=== PATIENT | male | born 1965 | race Caucasian/White ===

== ENCOUNTER 2018-02-17 14:59 | Inpatient (IN) | payer MEDICARE, MEDICAID ==
[~2018-02-17] VITALS: Ht 172.7 cm; Wt 70.4 kg
[2018-02-17] MEDS ORDERED: HIV PO (15:58)
[2018-02-17 16:13] LABS: BASOPHILS % (AUTO) 0.6 % (0.0-2.0); EOSINOPHILS % (AUTO) 2.5 % (1.0-6.0); HEMATOCRIT 34.1 % (41-53); HEMOGLOBIN 12.1 g/dL (13.5-17.5); LYMPHOCYTES # (AUTO) 0.9 K/uL (1.0-4.8); MEAN CORPUSCULAR HEMOGLOBIN 33.1 pg (26.0-34.0); MEAN CORPUSCULAR HGB CONC 35.4 G/dL (31.0-37.0); MEAN CORPUSCULAR VOLUME 94 fL (80-100); MONOCYTES # (AUTO) 0.5 K/uL (0.1-1.0); MONOCYTES % (AUTO) 17.9 % (2.0-9.0); NEUTROPHILS # (AUTO) 1.2 K/uL (1.8-7.7); PLATELET COUNT (AUTO) 180 K/uL (150-450); RED BLOOD CELL COUNT(AUTO) 3.65 MIL/uL (4.50-5.90); RED CELL DISTRIBUTION WIDTH 13.8 % (11.5-14.5)
[2018-02-17 16:27] LABS: ANION GAP 7 mmol/L (8-16); CALCIUM, TOTAL 8.1 mg/dL (8.8-10.5); CARBON DIOXIDE 28 mmol/L (22-29); CHLORIDE 105 mmol/L (98-107); GLOMERULAR FILTR. RATE CALC > 60 mL/min (>60); GLUCOSE,RANDOM 92 mg/dL (70-110); POTASSIUM 3.3 mmol/L (3.5-5.1); SODIUM SERUM 140 mmol/L (136-145); UREA NITROGEN, BLOOD 10 mg/dL (7-18)
[2018-02-17 16:30] LABS: APPEARANCE,URINE CLEAR (CLEAR); BILIRUBIN,URINE NEGATIVE (NEGATIVE); GLUCOSE, URINE (UA) NEGATIVE (NEGATIVE); KETONES,URINE 40 mg/dL (NEGATIVE); LEUKOCYTE ESTERASE ,URINE NEGATIVE (NEGATIVE); NITRATE,URINE NEGATIVE (NEGATIVE); OCCULT BLOOD,URINE TRACE (NEGATIVE); PROTEIN,URINE TRACE (NEGATIVE)
[2018-02-17 16:33] LABS: ALANINE AMINOTRANSFERASE 40 U/L (12-78); ALBUMIN 3.3 g/dL (3.4-5.0); ALKALINE PHOSPHATASE 129 U/L (46-116); ASPARTATE AMINOTRANSFERASE 41 U/L (15-37); BILIRUBIN,TOTAL 0.8 mg/dL (0.1-1.0); TOTAL PROTEIN, SERUM 7.2 g/dL (6.4-8.2)
[2018-02-17 16:40] LABS: BACTERIA,URINE Rare /HPF (None Seen); SQUAMOUS EPITHELIAL CELL,UR Rare /LPF (None Seen); WBC,URINE 0-2 /HPF (0-5)
[2018-02-17 16:41] LABS: MUCUS,URINE Moderate LPF (None Seen)
[2018-02-17 19:48] LABS: CREATINE KINASE, TOTAL ONLY 102 U/L (39-308)
[2018-02-17] MEDS ORDERED: POTASSIUM CHLORIDE 20 MEQ ER TABLET PO ONE (20:00)
[2018-02-17] MEDS ORDERED: LORazepam 2 MG TABLET PO PRN ×2 (20:00→20:30)
[2018-02-17 20:04] LABS: AMPHET/METH SCREEN,URINE NEGATIVE (NEGATIVE); BARBITURATE SCREEN, URINE NEGATIVE (NEGATIVE); BENZODIAZEPINES SCREEN,URINE NEGATIVE (NEGATIVE); CANNABINOID SCREEN,URINE POSITIVE (NEGATIVE); COCAINE SCREEN,URINE NEGATIVE (NEGATIVE); METHADONE SCREEN, URINE NEGATIVE (NEGATIVE); OPIATE SCREEN,URINE NEGATIVE (NEGATIVE)
[2018-02-17 20:05] LABS: PHENCYCLIDINE SCREEN,URINE NEGATIVE (NEGATIVE)
[2018-02-17] MEDS ORDERED: HALOPERIDOL 5 MG TABLET PO PRN (20:30)
[2018-02-17] MEDS ORDERED: ZOLPIDEM TARTRATE 10 MG TABLET PO PRN (20:30)
[2018-02-18] MEDS ORDERED: LORazepam 2 MG TABLET PO PRN (07:00)
[2018-02-18] MEDS: LORazepam 2 MG TABLET PO SCH ×4 (08:39→21:00)
[2018-02-18 09:07] LABS: CHOL/HDL RATIO 3.5 (4.2-7.3)
[2018-02-18 10:50] VITALS: BP 127/90
[2018-02-18 12:00] VITALS: BP 129/79
[2018-02-18] MEDS ORDERED: PETROLATUM,WHITE 71 GM JELLY TP PRN (12:15)
[2018-02-18] MEDS ORDERED: ONDANSETRON HCL 4 MG TABLET PO PRN (12:15)
[2018-02-18] MEDS ORDERED: GuaiFENesin/D-METHORPHAN [SUGAR-FREE] 200-20MG/10 ML SYRUP UDCUP PO PRN (12:15)
[2018-02-18] MEDS ORDERED: ALBUTEROL SULFATE HFA 90 MCG/PUFF 8 GM INHALER IH PRN (12:15)
[2018-02-18] MEDS ORDERED: MAG HYDROX/AL HYDROX/SIMETH ES 30 ML SUSPENSION UDCUP PO PRN (12:15)
[2018-02-18] MEDS ORDERED: MAGNESIUM HYDROXIDE SUSPENSION 30 ML UDCUP PO PRN (12:15)
[2018-02-18] MEDS ORDERED: DOCUSATE SODIUM 100 MG CAPSULE PO PRN (12:15)
[2018-02-18] MEDS ORDERED: NICOTINE 14 MG/24 HOUR PATCH TD PRN (12:15)
[2018-02-18] MEDS ORDERED: LOPERAMIDE HCL 2 MG CAPSULE PO PRN (12:15)
[2018-02-18] MEDS ORDERED: ACETAMINOPHEN 325 MG TABLET PO PRN (12:15)
[2018-02-18] MEDS ORDERED: CloNIDine HCL 0.1 MG TABLET PO PRN (12:15)
[2018-02-18 13:00] VITALS: BP 110/76
[2018-02-18] MEDS ORDERED: CYANOCOBALAMIN 1,000 MCG/ML VIAL IM ONE (13:30)
[2018-02-18] MEDS: ESCITALOPRAM OXALATE 10 MG TABLET PO SCH (13:59)
[2018-02-18] MEDS: MULTIVITAMINS WITH MINERALS, THERAPEUTIC TABLET PO SCH (13:59)
[2018-02-18 14:00] VITALS: BP 112/80
[2018-02-18] MEDS: FOLIC ACID 1 MG TABLET PO SCH (14:00)
[2018-02-18 15:00] VITALS: BP 118/81
[2018-02-18 16:10] VITALS: BP 122/74
[2018-02-18] MEDS: BACITRACIN 28.4 GM OINTMENT TP SCH (17:00)
[2018-02-18] MEDS: THIAMINE HCL 100 MG TABLET PO SCH (18:14)
[2018-02-19 00:10] VITALS: BP 126/77
[2018-02-19 08:26] VITALS: BP 132/93
[2018-02-19] MEDS: LORazepam 2 MG TABLET PO SCH ×4 (08:39→21:14)
[2018-02-19] MEDS: ESCITALOPRAM OXALATE 10 MG TABLET PO SCH (08:39)
[2018-02-19] MEDS: FOLIC ACID 1 MG TABLET PO SCH (08:39)
[2018-02-19] MEDS: MULTIVITAMINS WITH MINERALS, THERAPEUTIC TABLET PO SCH (08:40)
[2018-02-19] MEDS: BACITRACIN 28.4 GM OINTMENT TP SCH ×2 (08:40→17:07)
[2018-02-19] MEDS: THIAMINE HCL 100 MG TABLET PO SCH ×2 (08:40→17:07)
[2018-02-19 08:59] LABS: CHOL/HDL RATIO 3.7 (4.2-7.3); POTASSIUM 3.9 mmol/L (3.5-5.1); THYROID STIMULATING HORMONE 0.66 uIU/mL (0.36-3.74)
[2018-02-19 09:36] LABS: HEMOGLOBIN A1C 5.3 % (4.5-6.2)
[2018-02-19 16:00] VITALS: BP 111/74
[2018-02-19 16:01] VITALS: BP 111/74
[2018-02-20 00:47] VITALS: BP 119/71
[2018-02-20] MEDS ORDERED: PNEUMOCOCCAL VACCINE POLYVALENT 0.5 ML VIAL [PPSV23] IM ONE (01:15)
[2018-02-20] MEDS ORDERED: LORazepam 1 MG TABLET PO PRN (07:00)
[2018-02-20 08:15] VITALS: BP 119/81
[2018-02-20 08:16] VITALS: BP 120/82
[2018-02-20 08:17] VITALS: BP 119/81
[2018-02-20] MEDS: ESCITALOPRAM OXALATE 10 MG TABLET PO SCH (08:46)
[2018-02-20] MEDS: MULTIVITAMINS WITH MINERALS, THERAPEUTIC TABLET PO SCH (08:47)
[2018-02-20] MEDS: BACITRACIN 28.4 GM OINTMENT TP SCH ×2 (08:47→16:09)
[2018-02-20] MEDS: LORazepam 1 MG TABLET PO SCH ×4 (08:47→20:17)
[2018-02-20] MEDS: THIAMINE HCL 100 MG TABLET PO SCH ×2 (08:47→16:08)
[2018-02-20] MEDS: FOLIC ACID 1 MG TABLET PO SCH (08:47)
[2018-02-20 16:00] VITALS: BP 110/60
[2018-02-20 16:38] VITALS: BP 110/60
[2018-02-20] MEDS: IBUPROFEN 400 MG TABLET PO PRN (18:01)
[2018-02-21 00:41] VITALS: BP 103/65
[2018-02-21 00:44] VITALS: BP 103/65
[2018-02-21] MEDS ORDERED: LORazepam 1 MG TABLET PO PRN (07:00)
[2018-02-21 08:20] VITALS: BP 127/72
[2018-02-21] MEDS: BACITRACIN 28.4 GM OINTMENT TP SCH ×2 (08:31→16:00)
[2018-02-21] MEDS: ESCITALOPRAM OXALATE 10 MG TABLET PO SCH (08:32)
[2018-02-21] MEDS: FOLIC ACID 1 MG TABLET PO SCH (08:32)
[2018-02-21] MEDS: THIAMINE HCL 100 MG TABLET PO SCH ×2 (08:32→16:00)
[2018-02-21] MEDS: MULTIVITAMINS WITH MINERALS, THERAPEUTIC TABLET PO SCH (08:32)
[2018-02-21] MEDS: BuPROPion HCL XL 150 MG ER TABLET PO SCH (12:58)
[2018-02-21 16:00] VITALS: BP 117/79
[2018-02-21 16:08] VITALS: BP 117/79
[2018-02-21 19:25] VITALS: BP 114/73
[2018-02-22 05:02] VITALS: BP 113/66
[2018-02-22 08:30] VITALS: BP 104/63
[2018-02-22 08:55] VITALS: BP 104/62
[2018-02-22] MEDS: BuPROPion HCL XL 150 MG ER TABLET PO SCH (08:58)
[2018-02-22] MEDS: THIAMINE HCL 100 MG TABLET PO SCH ×2 (08:58→16:07)
[2018-02-22] MEDS: FOLIC ACID 1 MG TABLET PO SCH (08:58)
[2018-02-22] MEDS: BACITRACIN 28.4 GM OINTMENT TP SCH ×2 (08:58→19:54)
[2018-02-22] MEDS: IBUPROFEN 400 MG TABLET PO PRN (12:58)
[2018-02-22 13:00] VITALS: BP 121/75
[2018-02-22] MEDS: MULTIVITAMINS WITH MINERALS, THERAPEUTIC TABLET PO SCH (13:00)
[2018-02-22 16:00] VITALS: BP 108/64
[2018-02-22 16:07] VITALS: BP 108/64
[2018-02-23 00:17] VITALS: BP 106/60
[2018-02-23] MEDS: MULTIVITAMINS WITH MINERALS, THERAPEUTIC TABLET PO SCH (08:23)
[2018-02-23] MEDS: THIAMINE HCL 100 MG TABLET PO SCH (08:23)
[2018-02-23] MEDS: FOLIC ACID 1 MG TABLET PO SCH (08:23)
[2018-02-23] MEDS: BACITRACIN 28.4 GM OINTMENT TP SCH (08:23)
[2018-02-23 08:36] VITALS: BP 117/71
[2018-02-23] MEDS ORDERED: BuPROPion HCL XL 150 MG ER TABLET PO SCH (09:00)
[2018-02-23 09:49] VITALS: BP 117/71
[2018-02-23] MEDS ORDERED: BUPR-93 PO (10:41)
[2018-02-24] MEDS ORDERED: BuPROPion HCL XL 150 MG ER TABLET PO SCH (09:00)
== END 2018-02-23 13:35 | disposition home or self-care (01) | DRG 885 ==
LOC: EMS 15:00 → B2S 02-18 09:41
PROVIDERS: ADMIT Psychiatry & Neurology Psychiatry; ATTEND Psychiatry & Neurology Psychiatry
DX: F33.2 Major depressive disorder, recurrent severe without psychotic features (principal); R45.851 Suicidal ideations; D64.9 Anemia, unspecified; D72.819 Decreased white blood cell count, unspecified; E87.6 Hypokalemia; F10.20 Alcohol dependence, uncomplicated; F12.90 Cannabis use, unspecified, uncomplicated; F17.200 Nicotine dependence, unspecified, uncomplicated; Z71.6 Tobacco abuse counseling
CPT/HCPCS: 83036; 84132; 84443; 90686; 93005; 96372; G0480; J3420

== ENCOUNTER 2018-04-12 14:13 | Emergency (ER) | payer MEDICARE, MEDICAID ==
[~2018-04-12] VITALS: Ht 167.6 cm; Wt 81.8 kg
[~2018-04-12 14:13] MED LIST: BUPR-93 PO
[2018-04-12] MEDS ORDERED: MAGNESIUM SULFATE 2 GM, MVI, ADULT NO.1 WITH VIT K 10 ML, THIAMINE HCL 100 MG, FOLIC AC... IV ONE ×5 (16:45)
[2018-04-12] MEDS ORDERED: SODIUM CHLORIDE 0.9% 1,000 ML IV ONE (16:45)
[2018-04-12 16:57] LABS: BASOPHILS % (AUTO) 1.8 % (0.0-2.0); EOSINOPHILS % (AUTO) 1.5 % (1.0-6.0); HEMATOCRIT 34.5 % (41-53); LYMPHOCYTES # (AUTO) 1.4 K/uL (1.0-4.8); LYMPHOCYTES % (AUTO) 41.2 % (22.0-44.0); MEAN CORPUSCULAR HEMOGLOBIN 31.2 pg (26.0-34.0); MEAN CORPUSCULAR HGB CONC 34.7 G/dL (31.0-37.0); MEAN CORPUSCULAR VOLUME 90 fL (80-100); MONOCYTES # (AUTO) 0.4 K/uL (0.1-1.0); MONOCYTES % (AUTO) 11.5 % (2.0-9.0); NEUTROPHILS # (AUTO) 1.5 K/uL (1.8-7.7); PLATELET COUNT (AUTO) 176 K/uL (150-450); RED BLOOD CELL COUNT(AUTO) 3.84 MIL/uL (4.50-5.90); RED CELL DISTRIBUTION WIDTH 15.2 % (11.5-14.5)
[2018-04-12 16:58] VITALS: BP 112/66
[2018-04-12 17:06] LABS: AMPHET/METH SCREEN,URINE NEGATIVE (NEGATIVE); BARBITURATE SCREEN, URINE NEGATIVE (NEGATIVE); BENZODIAZEPINES SCREEN,URINE NEGATIVE (NEGATIVE); CANNABINOID SCREEN,URINE POSITIVE (NEGATIVE); COCAINE SCREEN,URINE NEGATIVE (NEGATIVE); METHADONE SCREEN, URINE NEGATIVE (NEGATIVE); OPIATE SCREEN,URINE NEGATIVE (NEGATIVE)
[2018-04-12 17:07] LABS: PHENCYCLIDINE SCREEN,URINE NEGATIVE (NEGATIVE)
[2018-04-12 17:10] LABS: ANION GAP 7 mmol/L (8-16); CALCIUM, TOTAL 8.6 mg/dL (8.8-10.5); CARBON DIOXIDE 26 mmol/L (22-29); CHLORIDE 100 mmol/L (98-107); CREATININE 0.73 mg/dL (0.60-1.30); GLOMERULAR FILTR. RATE CALC > 60 mL/min (>60); GLUCOSE,RANDOM 102 mg/dL (70-110); POTASSIUM 3.9 mmol/L (3.5-5.1); SODIUM SERUM 133 mmol/L (136-145); UREA NITROGEN, BLOOD 9 mg/dL (7-18)
[2018-04-12 17:23] LABS: SALICYLATE < 2.8 mg/dL (2.8-20.0)
[2018-04-12 17:25] LABS: ALANINE AMINOTRANSFERASE 21 U/L (12-78); ALBUMIN 3.3 g/dL (3.4-5.0); ALKALINE PHOSPHATASE 111 U/L (46-116); ASPARTATE AMINOTRANSFERASE 29 U/L (15-37); BILIRUBIN,TOTAL 1.1 mg/dL (0.1-1.0); TOTAL PROTEIN, SERUM 7.8 g/dL (6.4-8.2)
[2018-04-12] MEDS ORDERED: ChlordiazePOXIDE HCL 25 MG CAPSULE PO ONE (17:30)
[2018-04-12 17:40] LABS: ACETAMINOPHEN < 2 mcg/mL (10-30)
== END 2018-04-12 19:03 | disposition home or self-care (01) ==
LOC: EMS 14:14
DX: F10.239 Alcohol dependence with withdrawal, unspecified (principal); F12.90 Cannabis use, unspecified, uncomplicated; F17.210 Nicotine dependence, cigarettes, uncomplicated; Z88.1 Allergy status to other antibiotic agents; Z88.8 Allergy status to other drugs, medicaments and biological substances; Y90.0 Blood alcohol level of less than 20 mg/100 ml; Z79.899 Other long term (current) drug therapy
CPT/HCPCS: 36415; 80053; 80307; 85025; 96365; 99283; G0480 ×2; G0481; J3411; J3475; J3490 ×2; J7030

== ENCOUNTER 2018-07-13 10:30 | Inpatient (IN) | payer MEDICARE, MEDICAID ==
[~2018-07-13] VITALS: Ht 167.6 cm; Wt 68.7 kg
[2018-07-13 11:48] LABS: EOSINOPHILS % (AUTO) 2.8 % (1.0-6.0); HEMOGLOBIN 12.5 g/dL (13.5-17.5); LYMPHOCYTES # (AUTO) 0.8 K/uL (1.0-4.8); LYMPHOCYTES % (AUTO) 36.9 % (22.0-44.0); MEAN CORPUSCULAR HGB CONC 34.6 G/dL (31.0-37.0); MEAN CORPUSCULAR VOLUME 93 fL (80-100); MONOCYTES # (AUTO) 0.3 K/uL (0.1-1.0); MONOCYTES % (AUTO) 12.2 % (2.0-9.0); NEUTROPHILS # (AUTO) 1.1 K/uL (1.8-7.7); NEUTROPHILS % (AUTO) 47.1 % (40.0-70.0); PLATELET COUNT (AUTO) 169 K/uL (150-450); RED BLOOD CELL COUNT(AUTO) 3.89 MIL/uL (4.50-5.90)
[2018-07-13 12:04] LABS: ANION GAP 10 mmol/L (8-16); CALCIUM, TOTAL 8.3 mg/dL (8.8-10.5); CARBON DIOXIDE 24 mmol/L (22-29); CHLORIDE 103 mmol/L (98-107); CREATININE 0.79 mg/dL (0.60-1.30); GLOMERULAR FILTR. RATE CALC > 60 mL/min (>60); GLUCOSE,RANDOM 87 mg/dL (70-110); POTASSIUM 3.7 mmol/L (3.5-5.1); SODIUM SERUM 137 mmol/L (136-145); UREA NITROGEN, BLOOD 9 mg/dL (7-18)
[2018-07-13 12:07] LABS: ALANINE AMINOTRANSFERASE 39 U/L (12-78); ALBUMIN 3.5 g/dL (3.4-5.0); ALKALINE PHOSPHATASE 129 U/L (46-116); ASPARTATE AMINOTRANSFERASE 43 U/L (15-37); BILIRUBIN,TOTAL 0.5 mg/dL (0.1-1.0); LIPASE 151 U/L (73-393)
[2018-07-13 12:11] LABS: B-TYPE NATRIURETIC PEPTIDE 5 pg/mL (0-100)
[2018-07-13 12:14] LABS: AMPHET/METH SCREEN,URINE NEGATIVE (NEGATIVE); BARBITURATE SCREEN, URINE NEGATIVE (NEGATIVE); BENZODIAZEPINES SCREEN,URINE NEGATIVE (NEGATIVE); CANNABINOID SCREEN,URINE POSITIVE (NEGATIVE); COCAINE SCREEN,URINE NEGATIVE (NEGATIVE); METHADONE SCREEN, URINE NEGATIVE (NEGATIVE); OPIATE SCREEN,URINE NEGATIVE (NEGATIVE)
[2018-07-13 12:18] LABS: PHENCYCLIDINE SCREEN,URINE NEGATIVE (NEGATIVE)
[2018-07-13 13:09] LABS: APPEARANCE,URINE CLEAR (CLEAR); BILIRUBIN,URINE NEGATIVE (NEGATIVE); GLUCOSE, URINE (UA) NEGATIVE (NEGATIVE); KETONES,URINE NEGATIVE (NEGATIVE); LEUKOCYTE ESTERASE ,URINE NEGATIVE (NEGATIVE); NITRATE,URINE NEGATIVE (NEGATIVE); OCCULT BLOOD,URINE TRACE (NEGATIVE); PH,URINE 5.5 (5.0-8.0); PROTEIN,URINE NEGATIVE (NEGATIVE); UROBILINOGEN,URINE 0.2 mg/dL (<=1.0)
[2018-07-13] MEDS ORDERED: LORazepam 2 MG/ML VIAL IM ONE (13:15)
[2018-07-13] MEDS ORDERED: HALOPERIDOL LACTATE 5 MG/ML VIAL IM ONE (13:15)
[2018-07-13 13:44] LABS: BACTERIA,URINE None Seen /HPF (None Seen); RBC,URINE 0-2 /HPF (0-2); WBC,URINE None Seen /HPF (0-5)
[2018-07-13] MEDS ORDERED: ACETAMINOPHEN 325 MG TABLET PO PRN ×2 (14:30→18:45)
[2018-07-13] MEDS ORDERED: IBUPROFEN 400 MG TABLET PO PRN ×2 (14:30→18:45)
[2018-07-13 17:00] VITALS: BP 98/56
[2018-07-13] MEDS ORDERED: PETROLATUM,WHITE 28 GM JELLY TP PRN (18:45)
[2018-07-13] MEDS ORDERED: ONDANSETRON HCL 4 MG TABLET PO PRN (18:45)
[2018-07-13] MEDS ORDERED: MAGNESIUM HYDROXIDE SUSPENSION 30 ML UDCUP PO PRN (18:45)
[2018-07-13] MEDS ORDERED: ALBUTEROL SULFATE HFA 90 MCG/PUFF 8 GM INHALER IH PRN (18:45)
[2018-07-13] MEDS ORDERED: LOPERAMIDE HCL 2 MG CAPSULE PO PRN (18:45)
[2018-07-13] MEDS ORDERED: DOCUSATE SODIUM 100 MG CAPSULE PO PRN (18:45)
[2018-07-13] MEDS ORDERED: CloNIDine HCL 0.1 MG TABLET PO PRN (18:45)
[2018-07-13] MEDS ORDERED: GuaiFENesin/D-METHORPHAN [SUGAR-FREE] 200-20MG/10 ML SYRUP UDCUP PO PRN (18:45)
[2018-07-13] MEDS ORDERED: MAG HYDROX/AL HYDROX/SIMETH ES 30 ML SUSPENSION UDCUP PO PRN (18:45)
[2018-07-13] MEDS ORDERED: NICOTINE 14 MG/24 HOUR PATCH TD PRN (18:45)
[2018-07-14] MEDS ORDERED: PNEUMOCOCCAL VACCINE POLYVALENT 0.5 ML VIAL [PPSV23] IM ONE (01:30)
[2018-07-14 05:57] LABS: BASOPHILS % (AUTO) 0.6 % (0.0-2.0); EOSINOPHILS % (AUTO) 7.3 % (1.0-6.0); HEMOGLOBIN 12.6 g/dL (13.5-17.5); LYMPHOCYTES # (AUTO) 0.9 K/uL (1.0-4.8); LYMPHOCYTES % (AUTO) 36.9 % (22.0-44.0); MEAN CORPUSCULAR HEMOGLOBIN 32.3 pg (26.0-34.0); MEAN CORPUSCULAR VOLUME 92 fL (80-100); MONOCYTES # (AUTO) 0.4 K/uL (0.1-1.0); MONOCYTES % (AUTO) 15.5 % (2.0-9.0); NEUTROPHILS # (AUTO) 0.9 K/uL (1.8-7.7); NEUTROPHILS % (AUTO) 39.7 % (40.0-70.0); PLATELET COUNT (AUTO) 150 K/uL (150-450); RED CELL DISTRIBUTION WIDTH 16.4 % (11.5-14.5)
[2018-07-14 06:20] LABS: HEMOGLOBIN A1C 5.4 % (4.5-6.2)
[2018-07-14 06:24] LABS: ALANINE AMINOTRANSFERASE 45 U/L (12-78); ALBUMIN 3.1 g/dL (3.4-5.0); ALKALINE PHOSPHATASE 120 U/L (46-116); ANION GAP 10 mmol/L (8-16); ASPARTATE AMINOTRANSFERASE 50 U/L (15-37); CALCIUM, TOTAL 8.5 mg/dL (8.8-10.5); CARBON DIOXIDE 25 mmol/L (22-29); CHLORIDE 104 mmol/L (98-107); CHOL/HDL RATIO 3.5 (4.2-7.3); CHOLESTEROL 162 mg/dL (131-200); CREATININE 0.69 mg/dL (0.60-1.30); GLOMERULAR FILTR. RATE CALC > 60 mL/min (>60); GLUCOSE,RANDOM 84 mg/dL (70-110); HDL CHOLESTEROL 46 mg/dL (40-60); LDL CHOL (CALC.) 101 mg/dL (0-130); POTASSIUM 3.7 mmol/L (3.5-5.1); SODIUM SERUM 139 mmol/L (136-145); THYROID STIMULATING HORMONE 0.71 uIU/mL (0.36-3.74); TOTAL PROTEIN, SERUM 7.5 g/dL (6.4-8.2); TRIGLYCERIDES 76 mg/dL (15-150); UREA NITROGEN, BLOOD 10 mg/dL (7-18)
[2018-07-14 08:06] VITALS: BP 108/75
[2018-07-14 17:09] VITALS: BP 127/65
[2018-07-15 07:48] VITALS: BP 122/56
[2018-07-15] MEDS: CITALOPRAM HYDROBROMIDE 20 MG TABLET PO SCH (07:48)
[2018-07-15 16:13] VITALS: BP 116/71
[2018-07-16 08:05] VITALS: BP 103/71
[2018-07-16] MEDS: CITALOPRAM HYDROBROMIDE 20 MG TABLET PO SCH (08:31)
[2018-07-16 16:18] VITALS: BP 119/77
[2018-07-17] MEDS: CITALOPRAM HYDROBROMIDE 20 MG TABLET PO SCH (08:46)
[2018-07-17 09:40] VITALS: BP 98/73
[2018-07-17] MEDS ORDERED: CITA-106 PO (10:45)
== END 2018-07-17 12:45 | disposition home or self-care (01) | DRG 881 ==
LOC: EMS 10:35 → 3EX 16:35
PROVIDERS: ADMIT Psychiatry & Neurology Psychiatry; ATTEND Psychiatry & Neurology Psychiatry
DX: F32.9 Major depressive disorder, single episode, unspecified (principal); R45.851 Suicidal ideations; G40.909 Epilepsy, unspecified, not intractable, without status epilepticus; F17.200 Nicotine dependence, unspecified, uncomplicated; F12.90 Cannabis use, unspecified, uncomplicated; K70.30 Alcoholic cirrhosis of liver without ascites; F10.129 Alcohol abuse with intoxication, unspecified; Y90.9 Presence of alcohol in blood, level not specified; D64.9 Anemia, unspecified; D72.819 Decreased white blood cell count, unspecified; F19.10 Other psychoactive substance abuse, uncomplicated; Z71.41 Alcohol abuse counseling and surveillance of alcoholic
CPT/HCPCS: 83036; 84443; 93005; G0378; G0480; J1630; J2060

== ENCOUNTER 2019-04-17 17:27 | Emergency (ER) | payer MEDICARE, MEDICAID ==
[~2019-04-17] VITALS: Ht 182.9 cm; Wt 180.0 kg
[~2019-04-17 17:27] MED LIST changes: -BUPR-93 PO; +CITA-106 PO
[2019-04-17 18:06] VITALS: BP 114/78
[2019-04-17] MEDS ORDERED: ACETAMINOPHEN 500 MG TABLET PO ONE (18:45)
== END 2019-04-17 19:20 | disposition home or self-care (01) ==
LOC: EMS 17:27
DX: F15.10 Other stimulant abuse, uncomplicated (principal); K13.79 Other lesions of oral mucosa; F32.9 Major depressive disorder, single episode, unspecified; F17.210 Nicotine dependence, cigarettes, uncomplicated; Z88.1 Allergy status to other antibiotic agents